=== PATIENT | female | born 1950 | race Caucasian/White ===

== ENCOUNTER → 2017-05-22 | Outpatient (CLI) | payer MEDICARE ==
[~2017-05-22] VITALS: Ht 172.7 cm; Wt 69.5 kg
[~2017-05-22] MED LIST: ATIVAN0.5 MG PO; GYNODIOL0.5 MG PO; MOTRIN IB200 M1 PO; TRIAMCINOLONE A15 GM TP
[2017-05-22 09:50] VITALS: BP 102/60
[2017-05-22 10:01] LABS: EOS # 0.1 (0.04-0.40); EOS % 0.9 % (1.0-5.0); HEMATOCRIT 41.8 % (37.0-47.0); HEMOGLOBIN 14.1 g/dL (12.5-16.0); LYMPH# 1.6 (1.50-4.00); MEAN CELL VOLUME 95 fl (78-100); MEAN CORPUSCULAR HEMOGLOBIN 32 pg (27-31); MEAN CORPUSCULAR HGB CONC 34 g/dL (33-37); MEAN PLATELET VOLUME 10.6 fl (7.4-10.4); MONO # 0.4 (0.20-0.80); NEU # 3.7 (1.40-6.50); PLATELET COUNT 257 K/mm3 (130-400); RED BLOOD COUNT 4.42 M/mm3 (4.10-5.30); RED CELL DISTRIBUTION WIDTH 12.8 % (11.5-14.5); WHITE BLOOD COUNT 5.8 K/mm3 (4.8-10.8)
[2017-05-22 10:07] LABS: ALBUMIN 4.3 g/dL (3.5-5.0); CALCIUM 9.7 mg/dL (8.4-10.2); POTASSIUM 4.5 mmol/L (3.6-5.0); TOTAL BILIRUBIN 0.6 mg/dL (0.2-1.3); TOTAL PROTEIN 7.5 g/dL (6.3-8.2)
[2017-05-22 11:10] LABS: ERYTHROCYTE SEDIMENTATION RATE 4 mm/hr (0-30)
[2017-05-24 00:58] LABS: T3 TOTAL 266 ng/dL (87-178)
== END ==
LOC: AMSURD 09:26
PROVIDERS: Internal Medicine
DX: I10 Essential (primary) hypertension (principal); Z00.00 Encounter for general adult medical examination without abnormal findings; Z12.11 Encounter for screening for malignant neoplasm of colon

== ENCOUNTER → 2017-05-30 | Outpatient (CLI) | payer MEDICARE ==
[2017-05-22 09:50] VITALS: BP 102/60
== END ==
LOC: RAD 09:54
DX: E04.2 Nontoxic multinodular goiter (principal); E05.90 Thyrotoxicosis, unspecified without thyrotoxic crisis or storm

== ENCOUNTER → 2017-06-26 | Outpatient (CLI) | payer MEDICARE ==
[2017-05-22 09:50] VITALS: BP 102/60
[2017-06-27 01:47] LABS: T3 TOTAL 118 ng/dL (87-178)
== END ==
LOC: LAB 09:32
PROVIDERS: Internal Medicine
DX: R94.6 Abnormal results of thyroid function studies (principal)

== ENCOUNTER → 2017-09-05 | Outpatient (CLI) | payer MEDICARE, OTHER ==
[2017-05-22 09:50] VITALS: BP 102/60
== END ==
LOC: MAMMO 09:57
DX: Z12.31 Encounter for screening mammogram for malignant neoplasm of breast (principal)

== ENCOUNTER → 2017-11-23 | Outpatient (CLI) | payer MEDICARE, OTHER ==
[2017-05-22 09:50] VITALS: BP 102/60
== END ==
LOC: LAB 09:29
DX: R19.7 Diarrhea, unspecified (principal); Z88.5 Allergy status to narcotic agent

== ENCOUNTER → 2017-12-01 | Outpatient (CLI) | payer MEDICARE, OTHER ==
[2017-05-22 09:50] VITALS: BP 102/60
== END ==
LOC: RAD 11:11
DX: M71.811 Other specified bursopathies, right shoulder (principal)

== ENCOUNTER → 2018-05-25 | Outpatient (CLI) | payer MEDICARE, OTHER ==
[2017-05-22 09:50] VITALS: BP 102/60
[2018-05-25 09:40] LABS: EOS # 0.1 (0.04-0.40); EOS % 1.1 % (1.0-5.0); HEMOGLOBIN 12.8 g/dL (12.5-16.0); LYMPH# 1.5 (1.50-4.00); MEAN CELL VOLUME 95 fl (78-100); MEAN CORPUSCULAR HEMOGLOBIN 32 pg (27-31); MEAN CORPUSCULAR HGB CONC 34 g/dL (33-37); MEAN PLATELET VOLUME 10.7 fl (7.4-10.4); MONO # 0.4 (0.20-0.80); NEU # 2.6 (1.40-6.50); PLATELET COUNT 236 K/mm3 (130-400); RED BLOOD COUNT 4.02 M/mm3 (4.10-5.30); RED CELL DISTRIBUTION WIDTH 13.2 % (11.5-14.5); WHITE BLOOD COUNT 4.5 K/mm3 (4.8-10.8)
[2018-05-25 09:48] LABS: ALBUMIN 4.1 g/dL (3.5-5.0); CALCIUM 9.1 mg/dL (8.4-10.2); TOTAL BILIRUBIN 0.6 mg/dL (0.2-1.3)
[2018-05-25 10:48] LABS: ERYTHROCYTE SEDIMENTATION RATE 8 mm/hr (0-30)
[2018-05-26 10:22] LABS: T3 TOTAL 104 ng/dL (87-178)
== END ==
LOC: LAB 09:07
PROVIDERS: Internal Medicine
DX: E04.2 Nontoxic multinodular goiter (principal); E78.2 Mixed hyperlipidemia; K90.9 Intestinal malabsorption, unspecified

== ENCOUNTER → 2018-06-05 | Outpatient (CLI) | payer MEDICARE, OTHER ==
[2017-05-22 09:50] VITALS: BP 102/60
== END ==
LOC: RAD 05-31 14:30
DX: E05.20 Thyrotoxicosis with toxic multinodular goiter without thyrotoxic crisis or storm (principal)

== ENCOUNTER → 2018-09-18 | Outpatient (CLI) | payer MEDICARE ==
[2017-05-22 09:50] VITALS: BP 102/60
== END ==
LOC: MAMMO 11:29
DX: Z12.31 Encounter for screening mammogram for malignant neoplasm of breast (principal)

== ENCOUNTER → 2018-10-24 | Outpatient (CLI) | payer MEDICARE ==
[2017-05-22 09:50] VITALS: BP 102/60
[2018-10-24 08:34] LABS: URINE APPEARANCE HAZY; URINE BILIRUBIN NEGATIVE (NEGATIVE); URINE BLOOD TRACE (NEGATIVE); URINE COLOR YELLOW; URINE GLUCOSE NEGATIVE (NEGATIVE); URINE KETONE NEGATIVE (NEGATIVE); URINE LEUKOCYTE ESTERASE 1+ (NEGATIVE); URINE NITRATE NEGATIVE (NEGATIVE); URINE PROTEIN(semi-quant) TRACE mg/dL (NEGATIVE); URINE UROBILINOGEN NORMAL (NORMAL)
[2018-10-24 08:35] LABS: URINE MUCUS PRESENT (NOT PRESENT)
== END ==
LOC: LAB 08:12
PROVIDERS: Nurse Practitioner
DX: R30.0 Dysuria (principal)

== ENCOUNTER → 2018-12-03 | Outpatient (CLI) | payer MEDICARE ==
[2017-05-22 09:50] VITALS: BP 102/60
== END ==
LOC: RAD 12:56
DX: E03.9 Hypothyroidism, unspecified (principal); E04.2 Nontoxic multinodular goiter; E05.20 Thyrotoxicosis with toxic multinodular goiter without thyrotoxic crisis or storm

== ENCOUNTER → 2019-04-18 | Outpatient (CLI) | payer MEDICARE ==
[2017-05-22 09:50] VITALS: BP 102/60
[2019-04-18 15:05] LABS: URINE APPEARANCE CLEAR; URINE BILIRUBIN NEGATIVE (NEGATIVE); URINE BLOOD NEGATIVE (NEGATIVE); URINE COLOR YELLOW; URINE GLUCOSE NEGATIVE (NEGATIVE); URINE KETONE NEGATIVE (NEGATIVE); URINE LEUKOCYTE ESTERASE NEGATIVE (NEGATIVE); URINE NITRATE NEGATIVE (NEGATIVE); URINE PROTEIN(semi-quant) NEGATIVE (NEGATIVE); URINE UROBILINOGEN NORMAL (NORMAL)
== END ==
LOC: LAB 14:32
PROVIDERS: Internal Medicine
DX: R30.0 Dysuria (principal)

== ENCOUNTER → 2020-02-26 | Outpatient (CLI) | payer MEDICARE ==
[2017-05-22 09:50] VITALS: BP 102/60
== END ==
LOC: MAMMO 10:32
DX: Z12.31 Encounter for screening mammogram for malignant neoplasm of breast (principal)

== ENCOUNTER → 2020-08-04 | Outpatient (CLI) | payer MEDICARE ==
[2017-05-22 09:50] VITALS: BP 102/60
[2020-08-04 10:44] LABS: MAGNESIUM 1.92 mg/dL (1.60-2.60)
[2020-08-04 11:10] LABS: URINE APPEARANCE CLEAR; URINE BILIRUBIN NEGATIVE (NEGATIVE); URINE COLOR YELLOW; URINE GLUCOSE NEGATIVE (NEGATIVE); URINE KETONE 1+ (NEGATIVE); URINE NITRATE POSITIVE (NEGATIVE); URINE PROTEIN(semi-quant) TRACE mg/dL (NEGATIVE); URINE UROBILINOGEN NORMAL (NORMAL)
[2020-08-04 11:11] LABS: URINE BLOOD TRACE (NEGATIVE); URINE LEUKOCYTE ESTERASE 1+ (NEGATIVE); URINE MUCUS PRESENT (NOT PRESENT)
== END ==
LOC: LAB 10:00
PROVIDERS: Internal Medicine
DX: Z12.11 Encounter for screening for malignant neoplasm of colon (principal); K90.9 Intestinal malabsorption, unspecified; R30.9 Painful micturition, unspecified; E78.2 Mixed hyperlipidemia; E04.2 Nontoxic multinodular goiter; M85.80 Other specified disorders of bone density and structure, unspecified site

== ENCOUNTER → 2020-08-05 | Outpatient (CLI) | payer MEDICARE ==
[2017-05-22 09:50] VITALS: BP 102/60
== END ==
LOC: AMSURD 08:28
DX: I21.9 Acute myocardial infarction, unspecified (principal)

== ENCOUNTER → 2020-08-13 | Outpatient (CLI) | payer MEDICARE ==
[2017-05-22 09:50] VITALS: BP 102/60
== END ==
LOC: LAB 11:01
DX: Z12.11 Encounter for screening for malignant neoplasm of colon (principal)

== ENCOUNTER → 2021-03-10 | Outpatient (CLI) | payer MEDICARE | LOC: MAMMO 10:45 | DX: Z12.31 Encounter for screening mammogram for malignant neoplasm of breast (principal) ==

== ENCOUNTER → 2021-04-14 | Outpatient (CLI) | payer MEDICARE | LOC: RAD 11:36 | DX: M18.12 Unilateral primary osteoarthritis of first carpometacarpal joint, left hand (principal); M25.551 Pain in right hip ==

== ENCOUNTER → 2021-10-14 | Outpatient (CLI) | payer MEDICARE ==
[2021-10-14 09:20] LABS: BASO # 0.04 K/mm3 (0.02-0.10); EOS # 0.06 K/mm3 (0.04-0.40); EOS % 1.2 % (1.0-5.0); HEMATOCRIT 39.3 % (37.0-47.0); HEMOGLOBIN 13.1 g/dL (12.5-16.0); LYMPH# 1.74 K/mm3 (1.50-4.00); MEAN CELL VOLUME 95 fl (78-100); MEAN CORPUSCULAR HEMOGLOBIN 32 pg (27-31); MEAN CORPUSCULAR HGB CONC 33 g/dL (33-37); MEAN PLATELET VOLUME 10.1 fl (7.4-10.4); MONO # 0.42 K/mm3 (0.20-0.80); PLATELET COUNT 305 K/mm3 (130-400); RED BLOOD COUNT 4.14 M/mm3 (4.10-5.30); RED CELL DISTRIBUTION WIDTH 12.9 % (11.5-14.5); WHITE BLOOD COUNT 5.1 K/mm3 (4.8-10.8)
[2021-10-14 09:25] LABS: ALBUMIN 4.2 g/dL (3.4-4.8); POTASSIUM 5.2 mmol/L (3.5-5.1)
[2021-10-14 09:26] LABS: CALCIUM 9.6 mg/dL (8.3-10.5)
[2021-10-14 09:27] LABS: TOTAL PROTEIN 6.9 g/dL (6.2-8.1)
[2021-10-14 09:29] LABS: TOTAL BILIRUBIN 0.4 mg/dL (0.2-1.2)
[2021-10-14 10:35] LABS: ERYTHROCYTE SEDIMENTATION RATE 7 mm/hr (0-30)
[2021-10-14 22:43] LABS: T3 FREE 2.9 pg/mL (1.7-3.7)
== END ==
LOC: RAD 08:44 → LAB 08:44
PROVIDERS: Internal Medicine
DX: Z00.00 Encounter for general adult medical examination without abnormal findings (principal); Z12.11 Encounter for screening for malignant neoplasm of colon; Z13.820 Encounter for screening for osteoporosis; M85.80 Other specified disorders of bone density and structure, unspecified site; K90.9 Intestinal malabsorption, unspecified; E78.2 Mixed hyperlipidemia; E04.2 Nontoxic multinodular goiter; M85.89 Other specified disorders of bone density and structure, multiple sites; G47.01 Insomnia due to medical condition; N95.9 Unspecified menopausal and perimenopausal disorder; L30.9 Dermatitis, unspecified

== ENCOUNTER → 2022-03-14 | Outpatient (CLI) | payer MEDICARE | LOC: MAMMO 11:04 → RAD 11:04 | DX: Z12.31 Encounter for screening mammogram for malignant neoplasm of breast (principal) ==

== ENCOUNTER → 2022-10-27 | Outpatient (CLI) | payer MEDICARE ==
[2022-10-27 14:58] LABS: BASO # 0.01 K/mm3 (0.02-0.10); EOS # 0.03 K/mm3 (0.04-0.40); EOS % 0.5 % (1.0-5.0); HEMATOCRIT 38.6 % (37.0-47.0); HEMOGLOBIN 12.7 g/dL (12.5-16.0); LYMPH# 1.84 K/mm3 (1.50-4.00); MEAN CELL VOLUME 98 fl (78-100); MEAN CORPUSCULAR HEMOGLOBIN 32 pg (27-31); MEAN CORPUSCULAR HGB CONC 33 g/dL (33-37); MEAN PLATELET VOLUME 10.4 fl (7.4-10.4); MONO # 0.42 K/mm3 (0.20-0.80); NEU # 3.77 K/mm3 (1.40-6.50); PLATELET COUNT 242 K/mm3 (130-400); RED BLOOD COUNT 3.96 M/mm3 (4.10-5.30); RED CELL DISTRIBUTION WIDTH 12.8 % (11.5-14.5); WHITE BLOOD COUNT 6.1 K/mm3 (4.8-10.8)
[2022-10-27 15:00] LABS: ALBUMIN 4.2 g/dL (3.4-4.8)
[2022-10-27 15:01] LABS: CALCIUM 9.4 mg/dL (8.3-10.5)
[2022-10-27 15:02] LABS: TOTAL PROTEIN 6.8 g/dL (6.2-8.1)
[2022-10-27 15:04] LABS: TOTAL BILIRUBIN 0.4 mg/dL (0.2-1.2)
[2022-10-27 23:51] LABS: T3 FREE 2.9 pg/mL (1.7-3.7)
== END ==
LOC: LAB 14:20
PROVIDERS: Internal Medicine
DX: Z00.00 Encounter for general adult medical examination without abnormal findings (principal); Z12.11 Encounter for screening for malignant neoplasm of colon; M85.80 Other specified disorders of bone density and structure, unspecified site; K90.9 Intestinal malabsorption, unspecified; E04.2 Nontoxic multinodular goiter; E78.2 Mixed hyperlipidemia; G47.01 Insomnia due to medical condition; N95.9 Unspecified menopausal and perimenopausal disorder; L30.9 Dermatitis, unspecified

== ENCOUNTER → 2024-03-25 | Outpatient (CLI) | payer MEDICARE | LOC: MAMMO 11:00 | DX: Z12.39 Encounter for other screening for malignant neoplasm of breast (principal) ==

== ENCOUNTER → 2024-08-09 | Outpatient (CLI) | payer MEDICARE ==
[2024-08-09 11:50] LABS: ALBUMIN 4.6 g/dL (3.4-4.8)
[2024-08-09 11:51] LABS: BASO # 0.03 K/mm3 (0.02-0.10); CALCIUM 10.1 mg/dL (8.3-10.5); EOS # 0.03 K/mm3 (0.04-0.40); EOS % 0.6 % (1.0-5.0); HEMATOCRIT 40.4 % (37.0-47.0); HEMOGLOBIN 13.2 g/dL (12.5-16.0); LYMPH# 1.57 K/mm3 (1.50-4.00); MEAN CELL VOLUME 96 fl (78-100); MEAN CORPUSCULAR HEMOGLOBIN 31 pg (27-31); MEAN CORPUSCULAR HGB CONC 33 g/dL (33-37); MEAN PLATELET VOLUME 10.5 fl (7.4-10.4); MONO # 0.37 K/mm3 (0.20-0.80); NEU # 3.11 K/mm3 (1.40-6.50); PLATELET COUNT 269 K/mm3 (130-400); WHITE BLOOD COUNT 5.1 K/mm3 (4.8-10.8)
[2024-08-09 11:52] LABS: TOTAL PROTEIN 7.4 g/dL (6.2-8.1)
[2024-08-09 11:54] LABS: TOTAL BILIRUBIN 0.6 mg/dL (0.2-1.2)
[2024-08-09 11:59] LABS: MAGNESIUM 1.98 mg/dL (1.60-2.60)
== END ==
LOC: LAB 11:04
PROVIDERS: Internal Medicine
DX: K90.9 Intestinal malabsorption, unspecified (principal); M85.80 Other specified disorders of bone density and structure, unspecified site; E78.2 Mixed hyperlipidemia

== ENCOUNTER → 2024-09-05 | Outpatient (CLI) | payer MEDICARE | LOC: VAS 16:17 → RAD 16:30 | DX: R06.00 Dyspnea, unspecified (principal) ==